=== PATIENT | male | born 1940 | race Caucasian/White ===

== ENCOUNTER → 2016-10-18 | Outpatient (CLI) | payer OTHER, MEDICARE ==
--- NOTE | 2016-10-18 11:49 | RADRPT ---
PROCEDURE: XR Knee. CLINICAL INDICATION: Right knee pain. TECHNIQUE: AP, lateral, tunnel and sunrise view of the right knee were obtained. The images review ed on a PACS workstation. COMPARISON: None. FINDINGS: Diffuse osteopenia is identified. The osseous structures appear intact. No destructive bony lesion s are observed. Mild narrowing of the medial lateral joint compartments is identified. Soft tissue s are unremarkable. IMPRESSION: Mild narrowing of the medial and lateral joint compartments. Osteopenia. RPTAT: AA .Victor Hugo Arguelles MD, MD Date Time Electronically viewed and signed by .Victor Hugo Arguelles MD, MD on 10/18/2016 11:48 .P/
== END | disposition home or self-care (01) ==
LOC: HKI 11:44
PROVIDERS: ATTEND Orthopaedic Surgery
DX: M25.561 Pain in right knee (principal); M17.11 Unilateral primary osteoarthritis, right knee
CPT/HCPCS: 20610; 73564; G0463; J7327